=== PATIENT | male | born 1995 | race Caucasian/White ===

== ENCOUNTER 2019-09-22 05:15 | Inpatient (IN) | payer SELFPAY ==
[~2019-09-22] VITALS: Ht 182.9 cm; Wt 70.0 kg
[2019-09-22] VITALS (100 sets, daily range): BP systolic 120–122; BP diastolic 71–99; PULSE 86–100; TEMP 98.1; O2SAT 85–100
[~2019-09-22 05:15] MED LIST: CEPHALEXIN500 M1 PO; NORCO 325 MG-51 TAB PO; OMNICEF 300MG300 MG PO; PREDNISONE20 MG PO; PROAIR HFA0.09 MG/AC IH; XANAX 1MG1 MG PO
[2019-09-22 05:41] LABS: ARTERIAL BLD GAS O2 SATURATION 91.8 % (92-100); ARTERIAL BLOOD GAS BASE EXCESS -10.5 (-2-2); ARTERIAL BLOOD GAS HCO3 19.3 meq/L (22-26); ARTERIAL BLOOD GAS PCO2 57.3 mmHg (35-45); ARTERIAL BLOOD GAS PO2 71.6 mmHg (80-100); ARTERIAL BLOOD GAS pH 7.15 (7.35-7.45)
[2019-09-22 05:45] LABS: HEMATOCRIT 51.7 % (42.0-52.0); HEMOGLOBIN 17.2 g/dl (13.5-18.0); MEAN CELL VOLUME 86 fl (80.0-100.0); MEAN CORPUSCULAR HEMOGLOBIN 29 pg (27.0-31.0); MEAN CORPUSCULAR HGB CONC 33 g/dl (33.0-37.0); MEAN PLATELET VOLUME 10.1 fl (7.4-10.4); PLATELET COUNT 253 K/mm3 (130-400); RED BLOOD COUNT 6.01 M/mm3 (4.20-5.60); REDCELL DISTRIBUTION WIDTH-CV 12.4 % (11.5-14.5)
[2019-09-22 05:56] LABS: ALBUMIN 4.5 gm/dL (3.5-5.0); BILIRUBIN,TOTAL 1.1 mg/dL (0.0-1.0); CALCIUM 8.1 mg/dL (8.4-10.2); CREATININE, serum 1.23 (0.66-1.25); POTASSIUM 3.6 mmol/L (3.4-5.0); TOTAL PROTEIN 7.5 gm/dL (6.4-8.2)
[2019-09-22 06:17] LABS: BAND 29 % (0-10); LYMPHOCYTE 16 % (20.0-51.0); NEUTROPHILS 55 % (42.0-75.2); PLATELET ESTIMATE NORMAL (NORMAL)
[2019-09-22 06:27] LABS: ACETAMINOPHEN < 10 ug/mL (10-30); ALCOHOL(ethanol),MEDICAL 54 mg/dL; SALICYLATE < 1.0 mg/dL
[2019-09-22 06:56] LABS: ARTERIAL BLD GAS O2 SATURATION 95.6 % (92-100); ARTERIAL BLD GAS TCO2 CT 22.6; ARTERIAL BLOOD GAS BASE EXCESS -9.1 (-2-2); ARTERIAL BLOOD GAS HCO3 20.8 meq/L (22-26); ARTERIAL BLOOD GAS PCO2 60.4 mmHg (35-45); ARTERIAL BLOOD GAS PO2 96.2 mmHg (80-100); ARTERIAL BLOOD GAS pH 7.15 (7.35-7.45)
--- NOTE | 2019-09-22 09:20 | NUR ---
PT arrives to unit via stretcher. PT able to move self over to ICU bed. PT continuosly asks what is happening. After orienting, PT verbalizes understanding, but is upset he relapsed after leaving rehab in [place] the day before.
--- NOTE | 2019-09-22 09:45 | NUR ---
PT became verbally agressive towards Dr. Perera during his initial assessment. PT states loudly and repetitively that he wants Dr. Perera to leave is room. PT states "I want someone without an accent". At this time Dr. Perera removed himself from PT room. Dr. Murrell notified.
--- NOTE | 2019-09-22 10:13 | NUR ---
Spoke with Glendy with [employer] evidence department. She states patient does have belongings there in evidence; clothing, phone, wallet, glasses, and a bag. She states "I don't know why they are here, Officer Donte logging them in this morning." States if patient is unable to come get them himself, he can designate someone to come pick them up. Will relay information to patient
[2019-09-22 11:28] LABS: TRICYCLIC ANTIDEPRESS URINE NEGATIVE
--- NOTE | 2019-09-22 12:45 | NUR ---
Officers from [facility] [employer] and [facility] here to see patient. All of them made aware of patient's isolation status, all ok with going in to see patient. Proper PPE applied and then in to see patient.
--- NOTE | 2019-09-22 12:55 | NUR ---
PT upset due to not having personal belongings due to friend his "[employer]" giving them to the [facility] police department. PT starts to exclaim that he wants to leave and yelling "I dont need or want to be here".
--- NOTE | 2019-09-22 13:33 | NUR ---
PT left the unit against medical advice.
[2019-09-22] MEDS ORDERED: MEDROL 4MG DOSPA4 MG PO (13:44)
[2019-09-22] MEDS ORDERED: CLEOCIN HCL300 MG PO (13:44)
[2019-09-22] MEDS ORDERED: PROAIR HFA0.09 MG/AC IH (13:44)
== END 2019-09-22 13:33 | disposition left against medical advice (07) | DRG 917 ==
LOC: COL.ER 05:15 → ICU 07:32
PROVIDERS: Emergency Medicine; ADMIT Internal Medicine
DX: T40.601A Poisoning by unspecified narcotics, accidental (unintentional), initial encounter (principal); J96.01 Acute respiratory failure with hypoxia; A41.9 Sepsis, unspecified organism; J69.0 Pneumonitis due to inhalation of food and vomit; T42.4X1A Poisoning by benzodiazepines, accidental (unintentional), initial encounter; J45.909 Unspecified asthma, uncomplicated; F10.10 Alcohol abuse, uncomplicated; F11.10 Opioid abuse, uncomplicated; F13.10 Sedative, hypnotic or anxiolytic abuse, uncomplicated
CPT/HCPCS: J1940; J2310; J2405; J2543; J7030; J7512